=== PATIENT | male | born 1990 | race Caucasian/White ===

== ENCOUNTER 2017-10-08 19:26 | Emergency (ER) | payer OTHER ==
[~2017-10-08] VITALS: Ht 185.4 cm; Wt 97.5 kg
[~2017-10-08 19:26] MED LIST: ALBU90OI INH; AMOX875 PO; Amoxicillin500 MG PO; Bactrim Ds Tab1 EACH PO; CEPH500 PO; CODACE30 PO; CRUTCH3 XX; CRUTCH4 USE; CYCL10 PO; Cleocin HCl150 MG PO; DOXY100 PO; ERYT.5TO OS; HYDACE5 PO; IBUP600 PO; IBUP800 PO; Keflex500 MG PO; METPHE5 PO; Motrin600 MG PO; NAPR550 PO; NYST100SU SS; Norco 5-325 Ta1 EACH PO; OXYACE5T PO; PENVK500 PO; PRED10 PO; RXCODACET PO; RXOXYACE PO; RXTRAM50 PO; SULI150 PO; SULTRIDS PO; TRAM50 PO; TRAZ50; TRAZODONE; Ultram50 MG PO; Veetids 500500 MG PO; Vibramycin100 MG PO
[2017-10-08] MEDS ORDERED: NAPR550 PO (20:42)
[2017-10-08] MEDS ORDERED: METPRE4DP PO (20:42)
[2017-10-08] MEDS ORDERED: Robaxin500 MG PO (20:42)
== END 2017-10-08 20:55 | disposition home or self-care (01) ==
LOC: ER 19:26
DX: M54.5 Low back pain (principal); F17.290 Nicotine dependence, other tobacco product, uncomplicated
CPT/HCPCS: 96372; 99283; J1885

== ENCOUNTER 2018-04-24 11:07 | Emergency (ER) | payer OTHER ==
[~2018-04-24] VITALS: Ht 185.4 cm; Wt 104.3 kg
[~2018-04-24 11:07] MED LIST changes: +METPRE4DP PO; +Robaxin500 MG PO
[2018-04-24] MEDS ORDERED: LIDO700A20 TOP (11:45)
[2018-04-24] MEDS ORDERED: Robaxin500 MG PO (11:45)
[2018-04-24] MEDS ORDERED: NAPR550 PO (11:45)
== END 2018-04-24 12:18 | disposition home or self-care (01) ==
LOC: ER 11:07
DX: M54.40 Lumbago with sciatica, unspecified side (principal); F17.290 Nicotine dependence, other tobacco product, uncomplicated; Z98.890 Other specified postprocedural states
CPT/HCPCS: 99283

== ENCOUNTER 2018-07-26 19:19 | Emergency (ER) | payer OTHER ==
[~2018-07-26] VITALS: Ht 185.4 cm; Wt 102.1 kg
[~2018-07-26 19:19] MED LIST changes: +LIDO700A20 TOP
[2018-07-26 20:40] LABS: Influenza A Positive (NEGATIVE); Influenza B Negative (NEGATIVE)
[2018-07-26] MEDS ORDERED: Tamiflu75 MG PO (20:59)
== END 2018-07-26 21:13 | disposition home or self-care (01) ==
LOC: ER 19:19
PROVIDERS: Physician Assistant
DX: J10.1 Influenza due to other identified influenza virus with other respiratory manifestations (principal); F17.290 Nicotine dependence, other tobacco product, uncomplicated
CPT/HCPCS: 87804; 99283

== ENCOUNTER 2019-04-08 16:22 | Emergency (ER) | payer OTHER ==
[~2019-04-08] VITALS: Ht 185.4 cm; Wt 111.1 kg
[~2019-04-08 16:22] MED LIST changes: +Tamiflu75 MG PO
[2019-04-08] MEDS ORDERED: IBUP600 PO (18:45)
== END 2019-04-08 19:33 | disposition home or self-care (01) ==
LOC: ER 16:22
DX: S93.401A Sprain of unspecified ligament of right ankle, initial encounter (principal); F17.290 Nicotine dependence, other tobacco product, uncomplicated; X50.1XXA Overexertion from prolonged static or awkward postures, initial encounter
CPT/HCPCS: 73610; 73630; 99283-25

== ENCOUNTER 2019-05-03 09:01 | Emergency (ER) | payer OTHER ==
[~2019-05-03] VITALS: Ht 185.4 cm; Wt 113.4 kg
[2019-05-03 09:45] LABS: Influenza A Negative (NEGATIVE); Influenza B Negative (NEGATIVE)
[2019-05-03 10:42] LABS: Influenza A Negative (NEGATIVE); Influenza B Negative (NEGATIVE)
[2019-05-03] MEDS ORDERED: PENVK500 PO (10:51)
[2019-05-04] MEDS ORDERED: CEFU250T47 PO (11:14)
== END 2019-05-03 11:01 | disposition home or self-care (01) ==
LOC: ER 09:01
PROVIDERS: Physician Assistant
DX: J02.0 Streptococcal pharyngitis (principal); F17.290 Nicotine dependence, other tobacco product, uncomplicated
CPT/HCPCS: 87430; 87804; 99283

== ENCOUNTER 2019-05-04 09:27 | Emergency (ER) | payer OTHER ==
[~2019-05-04] VITALS: Ht 185.4 cm; Wt 113.4 kg
[2019-05-04] MEDS ORDERED: CEFU250T47 PO (11:14)
== END 2019-05-04 11:40 | disposition home or self-care (01) ==
LOC: ER 09:27
DX: J02.0 Streptococcal pharyngitis (principal); T36.0X5A Adverse effect of penicillins, initial encounter; F17.290 Nicotine dependence, other tobacco product, uncomplicated
CPT/HCPCS: 36415; 86308; 99283; J1100; Q0163

== ENCOUNTER → 2020-09-11 | Outpatient (CLI) | payer OTHER ==
[~2020-09-11] MED LIST changes: +CEFU250T47 PO; +PRED20 PO
[2020-09-11 16:47] LABS: U Amphetamine Screen DETECTED; U Cannabinoids Screen DETECTED
[2020-09-11 16:48] LABS: U Barbituate Screen Not Detected; U Benzodiazapine Screen Not Detected; U Buprenorphine Screen Not Detected; U Cocaine Screen Not Detected; U Methadone Screen Not Detected; U Methamphetamine Screen Not Detected; U Opiates Screen Not Detected; U Oxycodone Screen Not Detected; U Phencyclidine Screen Not Detected; U Propoxyphene Screen Not Detected
== END ==
LOC: LAB 15:14 → LAB SHORT 15:14
PROVIDERS: Nurse Practitioner Family
DX: Z51.81 Encounter for therapeutic drug level monitoring (principal); Z79.899 Other long term (current) drug therapy
CPT/HCPCS: G0480

== ENCOUNTER 2020-10-12 06:33 | Emergency (ER) | payer OTHER ==
[~2020-10-12] VITALS: Ht 182.9 cm; Wt 113.4 kg
[~2020-10-12 06:33] MED LIST changes: -PRED20 PO
[2020-10-12] MEDS ORDERED: LIDO700A20 TOP (08:05)
[2020-10-12] MEDS ORDERED: PRED20 PO (08:05)
== END 2020-10-12 08:20 | disposition home or self-care (01) ==
LOC: ER 06:33
DX: M54.5 Low back pain (principal); F17.290 Nicotine dependence, other tobacco product, uncomplicated
CPT/HCPCS: 96372; 99283-25; A9270; J1885

== ENCOUNTER → 2022-02-23 | Outpatient (CLI) | payer OTHER ==
[~2022-02-23] MED LIST changes: +PRED20 PO
== END ==
LOC: LAB 14:52 → LAB SHORT 14:52
PROVIDERS: Nurse Practitioner Family
DX: Z02.83 Encounter for blood-alcohol and blood-drug test (principal); Z79.899 Other long term (current) drug therapy
CPT/HCPCS: G0480

== ENCOUNTER → 2023-06-07 | Outpatient (CLI) | payer OTHER | LOC: LAB SHORT 17:00 → LAB 17:00 | DX: J02.9 Acute pharyngitis, unspecified (principal) | CPT/HCPCS: 87081 ==

== ENCOUNTER → 2023-12-21 | Outpatient (CLI) | payer OTHER | LOC: LAB 10:29 → LAB SHORT 10:29 | DX: J02.9 Acute pharyngitis, unspecified (principal); R52 Pain, unspecified | CPT/HCPCS: 87081; 87147 ==